=== PATIENT | male | born 1950 | race Caucasian/White ===

== ENCOUNTER 2016-08-17 12:44 | Emergency (ER) | payer MEDICAID ==
[2016-08-17 12:53] VITALS: BP 123/84
[2016-08-17] MEDS ORDERED: Thiamine 200 MG/2 ML MDV IM ONE ×2 (12:59→13:19)
[2016-08-17] MEDS ORDERED: Sodium Chloride 0.9% 10 ML Syringe FLUSH PRN (13:20)
--- NOTE | 2016-08-17 17:58 | CR ---
DATE OF SERVICE: 08/17/16 CLINICAL DATA: FALL SINUS SERIES The paranasal sinuses are clear. No air-fluid levels. The patient is edentulous. [id number] [facility]
--- NOTE | 2016-08-17 18:08 | CR ---
DATE OF SERVICE: 08/17/16 CLINICAL DATA: FALL PA AND LATERAL CHEST Comparison is made to a prior exam dated 02/24/16. The heart size is normal. The aorta is ectatic. The patient is status post median sternotomy. The lungs are mildly hyperexpanded. There is chronic blunting of both costophrenic angles consistent with small chronic pleural effusions or pleural scar. The lungs are otherwise clear. No other significant findings. [id number] [facility]
--- NOTE | 2016-08-18 00:42 | ER ---
The patient arrives by ambulance with chief complaint of fall. HISTORY OF PRESENT ILLNESS: The original call about this patient from the ambulance was that the patient was to arrive with CPR in progress. However, when patient arrived he was awake and alert and in no acute distress. Apparently, the patient had been drinking alcohol. He admits to 2 beers. He was outside of a bar when he missed a step on the curb and fell, face first. Ambulance was called. PAST MEDICAL HISTORY: Significant for coronary artery disease and a recent bypass surgery in March 2016. He also has a history of hypertension and mitral valvular heart disease. CURRENT MEDICATION: Includes aspirin 325 mg once a day, atorvastatin 40 mg one p.o. daily, lisinopril 2.5 mg p.o. daily, omeprazole 20 mg p.o. daily, Coreg 3.125 mg b.i.d. It is uncertain whether the patient is on Plavix or not. It is not on his medical list but he states that he does take Plavix 75 mg once a day. REVIEW OF SYSTEMS: CONSTITUTIONAL: The patient denies any fevers, weight loss, fatigue. No vision changes. He has problems with chronic nose bleeds and nasal congestion with postnasal drip. No sore throat. No ear pain. CARDIOVASCULAR: No chest pain or palpitations. RESPIRATORY: No coughing, wheezing, or shortness of breath. GI: No nausea, vomiting, diarrhea, constipation, heartburn, or rectal bleeding. : No dysuria. MUSCULOSKELETAL : The patient has no complaints of joint pain at this time. SKIN: The patient does have some road rash abrasions on his face and on his dorsum of his right #3 finger and knuckle. NEUROLOGICAL: He denies any focal weakness, headache, loss of consciousness, seizures. PSYCH: He has no complaints of depression or anxiety. PHYSICAL EXAMINATION: GENERAL: Reveals a well-developed, well-nourished, alert male. He is oriented x3. He is in no acute distress. He does have alcohol odor on board. HEENT: Eyes show EOMI, PERRLA, anicteric. ENT shows nose to be clear with no acute bleeding. Canals are normal bilaterally. Throat is clear. He is edentulous. NECK: Symmetrical. Nontender with full range of motion intact. Thyroid is not palpable. LYMPH: Exam shows no adenopathy present. LUNGS: Clear with cough. No wheezing. No accessary muscle use. No rhonchi or rales. HEART: Shows a regular rate and rhythm. No murmurs, rubs, or gallops. No S3, no S4. ABDOMEN: Soft, nontender. No mass. No organomegaly. CHEST: Shows no pectus. No tenderness of the ribs. BACK: Shows no CVA or cord tenderness. ORTHOPEDIC: Gait is normal. Digits and nails are normal. Joints show no inflammation or restricted motion. SKIN: As mentioned above shows mild road rash on his face, on his foot right upper cheek, and periorbital area. No actual lacerations. His third finger has a very small abrasion as well as in his knuckle. NEURO EXAM: Intact. Cranial nerves 2 through 12 are normal. PSYCH: Normal with good insight, good memory. Mood is appropriate. He is oriented x3. ASSESSMENT: Fall and acute alcohol intoxication, history of coronary artery disease, history of mitral valve disease, abrasions skin of the face and right #3 finger. PLAN: The patient will keep his wounds clean and dry. He will use antibacterial soap. I do not think he needs p.o. antibiotics at this time. I suggested that he refrain from drinking alcohol. He has no history of DTs. He is not interested in rehab at this time. He had a slight decrease in his magnesium level at 1.7. I suggested that he use over-the- counter Mag oxide 420 mg p.o. daily and that he follow up next week with his physicians. Chest x-ray and sinus films were negative for any fractures or acute changes. No air fluid levels in the sinuses. No pneumonias or effusions in his x-ray. Electrolytes were normal with the exception of his slightly decreased magnesium of 1.7. His alcohol level was 389. His urine was clear. His blood count was at his baseline with a normal white count 7.3, hemoglobin 13.4, MCV was 94, platelet count 200. ANDRES/MODL /[id number] MTDD
== END 2016-08-17 14:35 | disposition home or self-care (01) ==
LOC: LB.ED 12:44
DX: F10.929 Alcohol use, unspecified with intoxication, unspecified (principal); S00.81XA Abrasion of other part of head, initial encounter; S60.412A Abrasion of right middle finger, initial encounter; I25.810 Atherosclerosis of coronary artery bypass graft(s) without angina pectoris; I10 Essential (primary) hypertension; Z95.5 Presence of coronary angioplasty implant and graft; Z79.899 Other long term (current) drug therapy; Z79.02 Long term (current) use of antithrombotics/antiplatelets; W19.XXXA Unspecified fall, initial encounter
CPT/HCPCS: 36415; 70220; 71020; 80053; 80307; 81001; 83735; 84443; 84484; 85025; 93005; 96372; 99284; G0480; A0425; A0429

== ENCOUNTER 2017-02-07 15:23 | Observation (INO) | payer MEDICAID ==
--- NOTE | 2017-02-07 15:38 | EDM.PDOC ---
ED HPI GENERAL MEDICAL PROBLEM - General Chief Complaint: Respiratory Problem Stated Complaint: sob Time Seen by Provider: 02/07/17 15:38 Source of Information: Reports: Patient - History of Present Illness INITIAL COMMENTS - FREE TEXT/NARRATIVE: 66 yr male presents with shortness of breath, chest pain, hx of [place] about 1 yr ago, dizziness, and temperature. - Related Data Allergies Allergy/AdvReac Type Severity Reaction Status Date / Time No Known Allergies Allergy Verified 02/07/17 15:31 Home Meds: Home Meds Carvedilol [Coreg] 3.125 mg PO BIDMEALS 08/17/16 [History] Lisinopril [Prinivil] 2.5 mg PO DAILY 08/17/16 [History] Aspirin 325 mg PO QPM 02/07/17 [History] Past Medical History Musculoskeletal History: Reports: Back Pain, Chronic Neurological History: Reports: Head Trauma Social & Family History - Family History Family Medical History: Noncontributory - Tobacco Use Smoking Status *Q: Current Every Day Smoker Years of Tobacco use: 40 Packs/Tins Daily: 1 - Alcohol Use Days Per Week of Alcohol Use: 6 Number of Drinks Per Day: 1 Total Drinks Per Week: 6 - Recreational Drug Use Recreational Drug Use: No ED ROS GENERAL - Review of Systems Review Of Systems: See Below Constitutional: Reports: Fever, Chills Respiratory: Reports: Shortness of Breath, Cough, Sputum Cardiovascular: Reports: Chest Pain. Denies: Edema Neurological: Reports: Other (fell on Saturday about 4 days ago) ED EXAM, GENERAL - Physical Exam Exam: See Below Exam Limited By: No Limitations General Appearance: Alert, WD/WN, No Apparent Distress Nose: Normal Inspection Head: Normocephalic Neck: Normal Inspection, Supple, Non-Tender Respiratory/Chest: Rhonchi, Wheezing Cardiovascular: Normal Peripheral Pulses, Regular Rate, Rhythm, No Edema GI/Abdominal: Normal Bowel Sounds, Soft, Non-Tender Extremities: No Pedal Edema, Other (knee pain) Neurological: Alert, Oriented Skin Exam: Warm, Dry Course - Vital Signs Last Recorded V/S: Last Vital Signs Temp 97.7 F 02/07/17 15:30 Pulse 84 02/07/17 16:30 Resp 30 H 02/07/17 16:30 BP 119/87 02/07/17 16:30 Pulse Ox 95 02/07/17 16:30 - Orders/Labs/Meds Orders: Active Orders 24 hr Category Date Time Status Patient Status [ADT] Routine ADT 02/07/17 16:55 Ordered EKG Documentation Completion [RC] ASDIRECTED Care 02/07/17 15:41 Ordered RT Aerosol Therapy [RC] ASDIRECTED Care 02/07/17 16:59 Ordered Chest 2V [CR] Stat Exams 02/07/17 15:40 Ordered Albuterol/Ipratropium [DuoNeb 3.0-0.5 MG/3 ML] Med 02/07/17 17:00 Ordered 3 ml NEB Q6H Levofloxacin/Dextrose 5%-Water [Levaquin in D5W 750 MG/ Med 02/07/17 17:00 Ordered 150 ML] 750 mg Premix Bag 1 bag IV Q24H Pantoprazole [ProTONIX IV] Med 02/07/17 17:00 Ordered 40 mg IVPUSH Q12H Medication Orders Albuterol/Ipratropium (Duoneb 3.0-0.5 Mg/3 Ml) 3 ml NEB Q6H DALE Levofloxacin/Dextrose 750 mg/ (Premix) 150 mls @ 100 mls/hr IV Q24H DALE Pantoprazole Sodium (Protonix Iv) 40 mg IVPUSH Q12H DALE Labs: Laboratory Tests 02/07/17 02/07/17 Range/Units 15:39 15:45 WBC 5.8 D (4.0-11.0) K/uL RBC 4.08 L (4.50-6.50) M/uL Hgb 13.3 (13.0-18.0) g/dL Hct 37.9 L (40.0-54.0) % MCV 93 (76-96) fL MCH 32.6 H (27.0-32.0) pg MCHC 35.1 H (31.0-35.0) g/dL RDW 16.7 H (11.0-16.0) % Plt Count 108 L D (150-400) K/uL MPV 9.0 (6.0-10.0) fL Neut % (Auto) 60.1 (45.0-70.0) % Lymph % (Auto) 28.4 (20.0-40.0) % [place] % (Auto) 9.6 (3.0-10.0) % Eos % (Auto) 0.9 L (1.0-5.0) % Baso % (Auto) 1.0 H (0.0-0.5) % Neut # (Auto) 3.49 (2.00-7.50) K/uL Lymph # (Auto) 1.65 (1.50-4.00) K/uL [place] # (Auto) 0.56 (0.20-0.80) K/uL Eos # (Auto) 0.05 (0.04-0.40) K/uL Baso # (Auto) 0.06 (0.02-0.10) K/uL Sodium 141 (136-145) mmol/L Potassium 3.5 (3.5-5.1) mmol/L Chloride 99 (98-107) mmol/L Carbon Dioxide 24.0 (21.0-32.0) mmol/L Anion Gap 21.5 H (5.0-15.0) mmol/L BUN 11 D (8-26) mg/dL Creatinine 0.90 (0.70-1.30) mg/dL Est Cr Clr Drug Dosing 88.31 mL/min Estimated GFR (MDRD) > 60 (>60) MLS/MIN BUN/Creatinine Ratio 12.2 (6-25) Glucose 102 H (74-100) mg/dL Calcium 8.8 (8.5-10.1) mg/dL Total Bilirubin 1.4 H D (0.0-1.0) mg/dL AST 47 H (15-37) U/L ALT 29 (12-78) U/L Alkaline Phosphatase 67 (46-116) U/L Total Protein 6.7 (6.4-8.2) g/dL Albumin 3.8 (3.4-5.0) g/dL Globulin 2.9 (2.2-4.2) g/dL Albumin/Globulin Ratio 1.3 (0.8-2.0) Meds: Medications Generic Name Dose Route Start Last Admin Trade Name Freq PRN Reason Stop Dose Admin Albuterol/Ipratropium 3 ml 02/07/17 17:00 Duoneb 3.0-0.5 Mg/3 Ml NEB Q6H DALE Levofloxacin/Dextrose 750 mg/ 150 mls @ 100 mls/hr 02/07/17 17:00 Premix IV Q24H DALE Pantoprazole Sodium 40 mg 02/07/17 17:00 Protonix Iv IVPUSH Q12H DALE Discontinued Medications Generic Name Dose Route Start Last Admin Trade Name Bjorn PRN Reason Stop Dose Admin Albuterol/Ipratropium 3 ml 02/07/17 16:17 02/07/17 16:17 Duoneb 3.0-0.5 Mg/3 Ml NEB 02/07/17 16:18 3 ml ONETIME ONE Administration Departure - Departure Time of Disposition: 17:00 Disposition: Refer to Observation Condition: Good Clinical Impression: Upper respiratory infection, SOB (shortness of breath) - Discharge Information Referrals: PCP,None [Primary Care Provider] - Forms: ED Department Discharge - Problem List & Annotations (1) SOB (shortness of breath) SNOMED Code(s): 975289968 Code(s): R06.02 - SHORTNESS OF BREATH Status: Acute Priority: High Current Visit: Yes (2) Upper respiratory infection SNOMED Code(s): 78547137 Code(s): J06.9 - ACUTE UPPER RESPIRATORY INFECTION, UNSPECIFIED Status: Acute Current Visit: Yes - Problem List Review Problem List Initiated/Reviewed/Updated: Yes - My Orders Last 24 Hours: My Active Orders 02/07/17 15:40 Chest 2V [CR] Stat 02/07/17 15:41 EKG Documentation Completion [RC] ASDIRECTED 02/07/17 16:55 Patient Status [ADT] Routine 02/07/17 16:59 RT Aerosol Therapy [RC] ASDIRECTED 02/07/17 17:00 Albuterol/Ipratropium [DuoNeb 3.0-0.5 MG/3 ML] 3 ml NEB Q6H Levofloxacin/Dextrose 5%-Water [Levaquin in D5W 750 MG/150 ML] 750 mg Premix Bag 1 bag IV Q24H Pantoprazole [ProTONIX IV] 40 mg IVPUSH Q12H - Assessment/Plan Last 24 Hours: My Active Orders 02/07/17 15:40 Chest 2V [CR] Stat 02/07/17 15:41 EKG Documentation Completion [RC] ASDIRECTED 02/07/17 16:55 Patient Status [ADT] Routine 02/07/17 16:59 RT Aerosol Therapy [RC] ASDIRECTED 02/07/17 17:00 Albuterol/Ipratropium [DuoNeb 3.0-0.5 MG/3 ML] 3 ml NEB Q6H Levofloxacin/Dextrose 5%-Water [Levaquin in D5W 750 MG/150 ML] 750 mg Premix Bag 1 bag IV Q24H Pantoprazole [ProTONIX IV] 40 mg IVPUSH Q12H Plan: Upper respiratory infection: Levaquin 750 mg IV q 24 hr Duoneb q 6 hr dale. Upper GI distress: IV protonix q 12 hr dale.
[2017-02-07] MEDS ORDERED: Albuterol/Ipratropium 3.0-0.5 MG/3 ML Neb Soln NEB ONE (16:17)
[2017-02-07] MEDS: Albuterol/Ipratropium 3.0-0.5 MG/3 ML Neb Soln NEB SCH (17:00)
[2017-02-07] MEDS ORDERED: Levofloxacin/Dextrose 5%-Water 750 MG in Premix Bag 1 BAG IV SCH (17:00)
[2017-02-07] MEDS ORDERED: Sodium Chloride 0.9% 1,000 ML IV SCH (17:15)
[2017-02-07] MEDS: Pantoprazole 40 MG Vial IVPUSH SCH (17:30)
[2017-02-07] MEDS ORDERED: Ondansetron 4 MG/2 ML SDV ONE (18:23)
[2017-02-07] MEDS ORDERED: Promethazine 25 MG in Sodium Chloride 0.9% 50 ML IV PRN (18:36)
[2017-02-07] MEDS: Promethazine 25 MG/ML SDV ONE (18:45)
[2017-02-07] MEDS ORDERED: LORazepam 1 MG Tab PO PRN (18:52)
[2017-02-07] MEDS ORDERED: LORazepam 1 MG Tab PO ONE (18:54)
[2017-02-08] MEDS: Promethazine 25 MG/ML SDV ONE (00:04)
[2017-02-08] MEDS: Albuterol/Ipratropium 3.0-0.5 MG/3 ML Neb Soln NEB SCH ×5 (00:15→22:42)
[2017-02-08] MEDS: Pantoprazole 40 MG Vial IVPUSH SCH ×2 (05:27→17:15)
[2017-02-08] MEDS: Nicotine 21 MG/24 Hr Patch TRDERM SCH ×2 (05:46→11:36)
--- NOTE | 2017-02-08 09:50 | CR ---
DATE OF SERVICE: 02/07/17 CLINICAL DATA: short of breath PA AND LATERAL CHEST: Comparison is made to a prior exam dated 08/17/2016. The patient is status post median sternotomy. The heart size is normal. The aorta is calcified and ectatic. The lungs are mildly hyperexpanded. There is a rounded nodular density overlying the right lower lung consistent with nipple shadow. The lungs are otherwise clear. No pneumothorax. No pleural effusions. No areas of consolidation. No other significant findings. IMPRESSION: No evidence of acute intrathoracic disease. [id number] [facility]
--- NOTE | 2017-02-08 18:05 | PN ---
DATE OF VISIT: SUBJECTIVE: This is a 66-year-old male who was admitted yesterday late afternoon for observation, for weakness with shortness of breath, some concern about possible pneumonia. The patient has continued to be weak. His shortness of breath seems to be getting better. He is getting a little stronger today. OBJECTIVE: VITAL SIGNS: Vital signs have been good. Blood pressure this morning is 139/93, pulse 75, he is afebrile. LAB WORK: Reveals a WBC today of 3.9; hemoglobin is currently 11.7, it was 13.3 yesterday; platelets are now at 72,000, they were 108,000 yesterday. H. pylori and rapid flu were done today, which were negative. The patient has been afebrile. ASSESSMENT AND PLAN: Nursing staff states that he has been up to go to the bathroom, but this is about as much energy as he has. He has been eating and drinking okay. When I saw the patient this morning, he states he was not feeling very good, mainly tired. He has been having some nausea and vomiting problems yesterday and during the night, this seems to have gotten better today. I feel the patient needs to remain on observation overnight and be re- evaluated tomorrow. If he is not able to be discharged tomorrow, he would need to be transferred to acute care status. CRS/MODL /[id number]
--- NOTE | 2017-02-09 10:10 | PCM.DCSUM1 ---
Discharge Summary - Hospital Course Free Text/Narrative:: Pt is a 66 year old male admitted with weakness and mild URI symptoms. His initial workup was normal.He was admitted for IV hydration and also empirically was covered with levaquin for pneumonia. His chest Xray was normal and his Levaquin was discontinued. His initial CBC and CMP were normal. On Day 1, Pt's vitals were stable and his CBC and BMP were normal. His weakness and tired feeling was better.Pt's IV fluids were discontinued and monitored. He has been feeding well. No complaints. On Day 2 , pt has been having mild productive cough. Afebrile. No shortness of breath or wheezing. HE claims he feels better.Clinical exam is normal. I have reassured patient that he had Viral URI with bronchitis. Plan on discharge today. I have advised him to use robutussin DM for cough. Steam inhalations 2-3 times daily. rest and hydration. Followup with his PCP next saturday or saturday. Brief History: Admitted with weakness and chestpain. Kindly see H&P for details. - Discharge Data Discharge Date: 02/09/17 Discharge Disposition: Home, Self-Care 01 Condition: Good - Discharge Diagnosis/Problem(s) (1) Viral bronchitis SNOMED Code(s): 97667590 ICD Code: J20.8 - ACUTE BRONCHITIS DUE TO OTHER SPECIFIED ORGANISMS Status : Acute Current Visit: Yes (2) Upper respiratory infection SNOMED Code(s): 23487978 ICD Code: J06.9 - ACUTE UPPER RESPIRATORY INFECTION, UNSPECIFIED Status: Acute Current Visit: Yes - Patient Instructions Diet: Regular Diet as Tolerated Fluid Restriction: 1500 mL Activity: As Tolerated Driving: May Drive Today Showering/Bathing: May Shower Other/Special Instructions: Plan on discharge today. I have advised him to use robutussin DM for cough. Steam inhalations 2-3 times daily. rest and hydration. Followup with his PCP next saturday or saturday. - Discharge Plan Home Medications: Home Meds Carvedilol [Coreg] 3.125 mg PO BIDMEALS 08/17/16 [History] Lisinopril [Prinivil] 2.5 mg PO DAILY 08/17/16 [History] Aspirin 325 mg PO QPM 02/07/17 [History] Forms: ED Department Discharge Referrals: PCP,None [Primary Care Provider] - - Discharge Summary/Plan Comment DC Time >30 min.: Yes - General Info Date of Service: 02/09/17 Functional Status: Reports: Tolerating Diet, Ambulating, Urinating, Incentive Spirometry - Review of Systems General: Denies: Fever, Weakness, Fatigue HEENT: Denies: Headaches, Sinus Congestion, Sore Throat Pulmonary: Reports: Cough. Denies: Shortness of Breath, Pleuritic Chest Pain, Sputum Cardiovascular: Denies: Chest Pain, Lightheadedness Gastrointestinal: Denies: Abdominal Pain, Diarrhea, Nausea, Vomiting Genitourinary: Denies: Dysuria, Frequency Musculoskeletal: Denies: Joint Pain, Joint Swelling Skin: Denies: Cyanosis, Jaundice, Pruritis, Rash Neurological: Denies: Confusion, Dizziness, Seizure, Syncope Psychiatric: Denies: Confusion, Depression - Patient Data Vitals - Most Recent: Last Vital Signs Temp 98.4 F 02/08/17 20:00 Pulse 92 02/08/17 20:00 Resp 20 02/08/17 20:00 BP 127/75 02/08/17 20:00 Pulse Ox 100 02/08/17 20:00 Weight - Most Recent: 78.018 kg I&O - Last 24 hours: Intake & Output 02/08/17 02/09/17 02/09/17 22:59 06:59 14:59 Intake Total 750 Balance 750 PATRICK Results - Last 24 hrs: Microbiology 02/08/17 Unknown MRSA Surveillance Culture - Final Nares, Unspecified NO MRSA ISOLATED 02/08/17 Unknown Helicobacter pylori Antigen - Final Stool / Feces NEGATIVE H. PYLORI AG 02/08/17 10:35 Influenza Type A Antigen Screen - Final Nasal, Unspecified NEGATIVE INFLUENZA A VIRUS AG Influenza Type B Antigen Screen - Final NEGATIVE INFLUENZA B VIRUS AG Med Orders - Current: Current Medications Albuterol/Ipratropium (Duoneb 3.0-0.5 Mg/3 Ml) 3 ml NEB Q6H MINDY Last Admin: 02/08/17 22:42 Dose: 3 ml Sodium Chloride (Normal Saline) 1,000 mls @ 50 mls/hr IV ASDIRECTED MINDY Last Admin: 02/07/17 17:43 Dose: 50 mls/hr Promethazine HCl 25 mg/ Sodium (Chloride) 51 mls @ 200 mls/hr IV Q6H PRN PRN Reason: Nausea/Vomiting Lorazepam (Ativan) 0 mg PO Q8H PRN; Protocol PRN Reason: Withdrawal Symptoms Last Admin: 02/07/17 18:55 Dose: 1 mg Nicotine (Habitrol) 21 mg TRDERM DAILY [facility] Last Admin: 02/08/17 11:36 Dose: Not Given Pantoprazole Sodium (Protonix Iv) 40 mg IVPUSH Q12H [facility] Last Admin: 02/08/17 17:15 Dose: 40 mg Discontinued Medications Albuterol/Ipratropium (Duoneb 3.0-0.5 Mg/3 Ml) 3 ml NEB ONETIME ONE Stop: 02/07/17 16:18 Last Admin: 02/07/17 16:17 Dose: 3 ml Levofloxacin/Dextrose 750 mg/ (Premix) 150 mls @ 100 mls/hr IV Q24H [facility] Last Admin: 02/07/17 17:40 Dose: 50 mls/hr Lorazepam (Ativan) 1 mg PO ONETIME ONE Stop: 02/07/17 18:55 Last Admin: 02/08/17 00:05 Dose: Not Given Ondansetron HCl (Zofran) Confirm Administered Dose 4 mg .ROUTE .STK-MED ONE Stop: 02/07/17 18:24 Last Admin: 02/07/17 18:30 Dose: Not Given Promethazine HCl (Phenergan) Confirm Administered Dose 25 mg .ROUTE .STK-MED ONE Stop: 02/07/17 18:39 Last Admin: 02/08/17 00:04 Dose: Not Given - Exam General: Reports: Alert, Oriented HEENT: Reports: Pupils Equal, Pupils Reactive, EOMI, Mucous Membr. Moist/[place] Neck: Reports: Supple Lungs: Reports: Clear to Auscultation, Normal Respiratory Effort Cardiovascular: Reports: Regular Rate, Regular Rhythm GI/Abdominal Exam: Normal Bowel Sounds, Soft, Non-Tender, No Organomegaly, No Distention, No Abnormal Bruit, No Mass, Pelvis Stable Extremities: Normal Inspection, Normal Range of Motion, Non-Tender, No Pedal Edema, Normal Capillary Refill Skin: Reports: Warm, Dry, Intact Neurological: Reports: No New Focal Deficit *Q Meaningful Use (DIS) - VTE *Q VTE Criteria *Q: - Stroke *Q Stroke Criteria *Q: - AMI *Q AMI Criteria *Q:
[2017-02-09 11:17] VITALS: BP 155/84
== END 2017-02-09 11:40 | disposition home or self-care (01) ==
LOC: LB.ED 15:23 → LB.MS 16:55
PROVIDERS: ADMIT Nurse Practitioner Family; ATTEND Nurse Practitioner Family
DX: J20.8 Acute bronchitis due to other specified organisms (principal); J06.9 Acute upper respiratory infection, unspecified; F17.200 Nicotine dependence, unspecified, uncomplicated; I25.2 Old myocardial infarction; Z79.899 Other long term (current) drug therapy
CPT/HCPCS: 36415; 71020; 80048; 80053; 84484; 85025; 87338; 87804; 93005; 96374; 96375; 96376; 99285; A0425; A0429; A9270; C9113; G0378; J1956; J2550; J7040; J7620

== ENCOUNTER 2017-06-06 07:55 | Emergency (ER) | payer MEDICAID ==
[2017-06-06] MEDS: Sodium Chloride 0.9% 500 ML IV ONE (08:30)
[2017-06-06] MEDS: Albuterol/Ipratropium 3.0-0.5 MG/3 ML Neb Soln NEB ONE (08:35)
[2017-06-06] MEDS: Albuterol/Ipratropium 3.0-0.5 MG/3 ML Neb Soln ONE (08:47)
[2017-06-06 08:56] VITALS: BP 96/63
--- NOTE | 2017-06-06 10:06 | ER ---
DATE OF SERVICE: 06/06/2017 HISTORY OF PRESENT ILLNESS: A 66-year-old male who comes in by ambulance with complaints of shortness of breath. He tells me he cannot get a good breath and he feels like he may . The patient states this has been ongoing for a while. He is very vague with details. The patient denies running a fever. He has not had any falls or injuries. PAST MEDICAL HISTORY: Includes coronary artery disease, CHF, shortness of breath, weakness, alcohol abuse. CURRENT MEDICATIONS: Lisinopril 2.5 mg a day, Coreg 3.125 mg b.i.d., a daily aspirin 325 mg. The patient also takes a PPI on a p.r.n. basis. OBJECTIVE: GENERAL APPEARANCE: The patient is awake and alert. He is somewhat slow to answer questions and is vague with details. VITAL SIGNS: Reviewed. Blood pressure 116/71. He is afebrile, pulse is 71, O2 sats are 97% on room air. HEENT: Ears, TMs are dull. Nares are patent. Oral mucous membranes are dry. Tonsils, not enlarged or injected. Pharynx not inflamed. NECK: Supple. LUNGS: Reveals rhonchi and rales scattered throughout the lung humphrey. CARDIAC: Heart sounds distinct without murmurs. ABDOMEN: Soft, nontender. Bowel sounds are present. SKIN: Warm and dry. LAB AND X-RAY: An EKG shows normal sinus rhythm. Chest x-ray shows some mild pulmonary congestion. There is no sign of effusion or pneumonia. Labs done today include a CBC which is normal. CMP shows a normal potassium level. Kidney function is normal. BNP is elevated at 1105. Troponin is normal. DIAGNOSIS: Congestive heart failure. TREATMENT PLAN: A DuoNeb was given to the patient. This significantly helped with the patient's wheezing and he felt better after the breathing treatment. He still has scattered rales, but the wheezes cleared up. At this point, the patient will be discharged home. I will start him on Lasix 20 mg b.i.d. for 3 days and then 20 mg q.a.m. for 4 days. I will give him a nebulizer machine at home with DuoNeb treatments every 6 hours while awake. The patient is to go home and rest for the next couple of days and then increase activity as tolerated. I do want the patient to follow up with his primary care provider whom he tells me is Dr. Jacinto early next week in the clinic. Follow up sooner of course steven OLEARY/LISANDRO /[id number] MTDD
--- NOTE | 2017-06-06 11:51 | CR ---
DATE OF SERVICE: 06/06/2017 CLINICAL DATA: SOB. PORTABLE CHEST: Comparison is made to a prior exam dated 02/07/2017. The patient is status post median sternotomy. The heart size is within normal limits. The aorta is ectatic. The pulmonary vasculature does appears slightly more prominent than on the prior exam suggesting the possibility of fluid overload or mild pulmonary venous congestion. The lungs are clear. No pneumothorax. No pleural effusions. No areas of consolidation. [id number] [facility]
== END 2017-06-06 09:57 | disposition home or self-care (01) ==
LOC: LB.ED 07:55
DX: I50.9 Heart failure, unspecified (principal)
CPT/HCPCS: 36415; 71045; 80053; 83880; 84484; 85025; 93005; 94640; 96360; 99285-25; A0425; A0429; G0480; J7040; J7620

== ENCOUNTER 2018-03-18 10:01 | Emergency (ER) | payer MEDICARE, MEDICAID ==
--- NOTE | 2018-03-18 11:01 | EDM.PDOC ---
ED HPI GENERAL MEDICAL PROBLEM - General Chief Complaint: Respiratory Problem Stated Complaint: CHEST PAIN Time Seen by Provider: 03/18/18 10:35 Source of Information: Reports: Patient, Family, RN History Limitations: Reports: No Limitations - History of Present Illness INITIAL COMMENTS - FREE TEXT/NARRATIVE: 67 yr male presents with cough and left sided pointed, chest pain, worse with deep breathing. States he has had these symptoms on/off for about 3 years and was treated on/off with antibiotic. States no pain while sitting, but pain increases with cough and deep breathing. Pt states he did eat last night, but hasn't had anything today. He did have some coffee and water. He was feeling better this week after being on antibiotic and watched football and then in the middle of the night, started with this cough again. States he has been using the nebulizer and noted improvement. States symptoms started a couple nights ago and noted some pain to the lower abdomen and then to back. He does have a cardiac history and did have a bypass a couple years ago. He does take ASA daily and did have his medication today. - Related Data Allergies Allergy/AdvReac Type Severity Reaction Status Date / Time No Known Allergies Allergy Verified 06/06/17 11:50 Home Meds: Home Meds Carvedilol [Coreg] 3.125 mg PO BIDMEALS 08/17/16 [History] Lisinopril [Prinivil] 5 mg PO DAILY 08/17/16 [History] Aspirin 325 mg PO QPM 02/07/17 [History] Omeprazole 20 mg PO DAILY 06/06/17 [History] Levofloxacin 750 mg PO DAILY #7 tablet 03/18/18 [Rx] predniSONE [Prednisone] 10 mg PO DAILY #40 tablet 03/18/18 [Rx] traMADol [Ultram] 50 mg PO Q6H PRN #28 tab 03/18/18 [Rx] Past Medical History HEENT History: Reports: Other (See Below) Other HEENT History: use to have dentures Cardiovascular History: Reports: CAD, Heart Failure, High Cholesterol, Hypertension, Other (See Below) Other Cardiovascular History: mitral valve disease Respiratory History: Reports: COPD Gastrointestinal History: Reports: GERD Musculoskeletal History: Reports: Back Pain, Chronic Neurological History: Reports: Head Trauma - Infectious Disease History Infectious Disease History: Reports: Chicken Pox, Measles, Mumps - Past Surgical History Cardiovascular Surgical History: Reports: Coronary Artery Bypass Respiratory Surgical History: Reports: None Social & Family History - Family History Family Medical History: Noncontributory - Caffeine Use Caffeine Use: Reports: Other Other Caffeine Use: Chocolate, occasional coffee ED ROS GENERAL - Review of Systems Review Of Systems: See Below Constitutional: Reports: No Symptoms. Denies: Fever, Chills Respiratory: Reports: Shortness of Breath, Cough, Sputum. Denies: Wheezing Cardiovascular: Reports: Chest Pain, Dyspnea on Exertion Neurological: Reports: No Symptoms Psychiatric: Reports: No Symptoms ED EXAM, GENERAL - Physical Exam Exam: See Below Exam Limited By: No Limitations General Appearance: Alert, No Apparent Distress Ears: Normal External Exam, Normal Canal, Hearing Grossly Normal Nose: Normal Inspection, Normal Mucosa Throat/Mouth: Normal Oropharynx, Normal Voice, No Airway Compromise Head: Atraumatic, Normocephalic Neck: Supple, Non-Tender Respiratory/Chest: No Respiratory Distress, Normal Breath Sounds, Decreased Breath Sounds (left lower lobe, wheezing to right lower lobe) Cardiovascular: Regular Rate, Rhythm, No Edema GI/Abdominal: Soft, Non-Tender, No Distention Extremities: Normal Inspection, Normal Range of Motion, Non-Tender, No Pedal Edema Neurological: Alert, Oriented, Normal Cognition Psychiatric: Normal Affect, Normal Mood Skin Exam: Warm, Dry, Normal Color Lymphatic: No Adenopathy EKG INTERPRETATION EKG Date: 03/18/18 Rhythm: NSR Comparison: No Change Course - Vital Signs Last Recorded V/S: Last Vital Signs Temp 97.3 F 03/18/18 12:53 Pulse 75 03/18/18 12:53 Resp 18 03/18/18 12:53 BP 100/73 03/18/18 12:53 Pulse Ox 97 03/18/18 12:53 - Orders/Labs/Meds Orders: Active Orders 24 hr Category Date Time Status EKG Documentation Completion [RC] ASDIRECTED Care 03/18/18 11:52 Active Chest wo Cont [CT] Stat Exams 03/18/18 10:51 Taken Labs: Laboratory Tests 03/18/18 03/18/18 03/18/18 Range/Units 10:49 10:49 10:50 WBC 10.4 D (4.0-11.0) K/uL RBC 4.48 L (4.50-6.50) M/uL Hgb 14.4 (13.0-18.0) g/dL Hct 43.4 (40.0-54.0) % MCV 97 H (76-96) fL MCH 32.1 H (27.0-32.0) pg MCHC 33.2 (31.0-35.0) g/dL RDW 16.8 H (11.0-16.0) % Plt Count 147 L D (150-400) K/uL MPV 9.9 (6.0-10.0) fL Neut % (Auto) 71.2 H (45.0-70.0) % Lymph % (Auto) 11.3 L (20.0-40.0) % [place] % (Auto) 12.7 H (3.0-10.0) % Eos % (Auto) 4.6 (1.0-5.0) % Baso % (Auto) 0.2 (0.0-0.5) % Neut # (Auto) 7.41 (2.00-7.50) K/uL Lymph # (Auto) 1.17 L (1.50-4.00) K/uL [place] # (Auto) 1.32 H (0.20-0.80) K/uL Eos # (Auto) 0.48 H (0.04-0.40) K/uL Baso # (Auto) 0.02 (0.02-0.10) K/uL Sodium 140 (136-145) mmol/L Potassium 4.1 (3.5-5.1) mmol/L Chloride 103 (98-107) mmol/L Carbon Dioxide 23.0 (21.0-32.0) mmol/L Anion Gap 18.1 H (5.0-15.0) mmol/L BUN 10 (8-26) mg/dL Creatinine 0.87 (0.70-1.30) mg/dL Est Cr Clr Drug Dosing TNP Estimated GFR (MDRD) > 60 (>60) MLS/MIN BUN/Creatinine Ratio 11.5 (6-25) Glucose 100 (74-100) mg/dL Calcium 8.7 (8.5-10.1) mg/dL Total Bilirubin 0.8 D (0.0-1.0) mg/dL AST 15 (15-37) U/L ALT 15 (12-78) U/L Alkaline Phosphatase 54 (46-116) U/L Troponin I < 0.017 (0.000-0.060) ng/mL C-Reactive Protein 24.8 H (0.0-3.0) mg/L Total Protein 6.4 (6.4-8.2) g/dL Albumin 3.3 L (3.4-5.0) g/dL Globulin 3.1 (2.2-4.2) g/dL Albumin/Globulin Ratio 1.1 (0.8-2.0) Meds: Medications Discontinued Medications Generic Name Dose Route Start Last Admin Trade Name Freq PRN Reason Stop Dose Admin Hydromorphone HCl Confirm 03/18/18 11:49 03/18/18 11:48 Dilaudid Administered 03/18/18 11:50 Not Given Dose 2 mg .ROUTE .STK-MED ONE Hydromorphone HCl 0.5 mg 03/18/18 11:46 03/18/18 11:47 Dilaudid IVPUSH 03/18/18 11:47 0.5 mg ONETIME ONE Administration - Re-Assessments/Exams Free Text/Narrative Re-Assessment/Exam: 03/18/18 17:32 LE Pt has had symptoms reportedly for 3 years and various rounds of antibiotic. 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 He just finished Azithromycin and Prednisone pack on Saturday and his symptoms returned. Will get Ct of chest today. CT results of left pleural effusion. This may be pneumonia in nature or malignancy. Will treat for pneumonia with Levofloxacin and Prednisone taper for COPD exacerbation. Counseled on black box warning of the antibiotic and pt would like to proceed with the antibiotic. Reviewed lab results and CT report with pt and daughter. Will refer pt to pulmonology from the clinic. RTC for follow-up and referral. Departure - Departure Time of Disposition: 13:00 Disposition: Home, Self-Care 01 Condition: Good Clinical Impression: Pleural effusion, Pleurisy - Discharge Information *PRESCRIPTION DRUG MONITORING PROGRAM REVIEWED*: Not Applicable *COPY OF PRESCRIPTION DRUG MONITORING REPORT IN PATIENT SUNNI: Not Applicable Prescriptions: Levofloxacin 750 mg PO DAILY #7 tablet predniSONE [Prednisone] 10 mg PO DAILY #40 tablet traMADol [Ultram] 50 mg PO Q6H PRN #28 tab PRN Reason: Pain Instructions: Pleural Effusion Referrals: PCP,None [Primary Care Provider] - Forms: ED Department Discharge Additional Instructions: Take Levofloxin 750mg daily until gone. Take Prednisone 40mg today then taper to 30mg then 20mg then 10mg until gone. Take Ultram 50mg every 6 hours as needed forpain - My Orders Last 24 Hours: My Active Orders 03/18/18 10:51 Chest wo Cont [CT] Stat 03/18/18 11:52 EKG Documentation Completion [RC] ASDIRECTED - Assessment/Plan Last 24 Hours: My Active Orders 03/18/18 10:51 Chest wo Cont [CT] Stat 03/18/18 11:52 EKG Documentation Completion [RC] ASDIRECTED Plan: Will get Ct of chest today. CT results of left pleural effusion. This may be pneumonia in nature or malignancy. Will treat for pneumonia with Levofloxacin and Prednisone taper for COPD exacerbation. Counseled on black box warning of the antibiotic and pt would like to proceed with the antibiotic. Will treat the pain with Tramadol prn. Reviewed lab results and CT report with pt and daughter. Will refer pt to pulmonology from the clinic. RTC for follow-up and referral.
[2018-03-18] MEDS ORDERED: HYDROmorphone 2 MG/ML Syringe IVPUSH ONE (11:46)
[2018-03-18] MEDS ORDERED: HYDROmorphone 2 MG/ML Syringe ONE (11:49)
[2018-03-18 12:44] VITALS: BP 100/73
--- NOTE | 2018-03-19 12:31 | CT ---
DATE OF SERVICE: 03/18/18 CLINICAL DATA: Cough UNENHANCED CHEST CT: Multislice acquisition through the chest without IV contrast was performed. Comparison is made to a prior chest x-ray dated 02/11/18. There is a large left pleural effusion that appears to be partially loculated. There is atelectasis with consolidation involving the lingular segment of the left upper lobe and left lower lobe. Pneumonia should be considered. I cannot exclude a mass. There is a 3 mm subpleural nodule in the right upper lobe which appears to be partially calcified consistent with prior granulomatous disease. The right lung is otherwise clear. No pleural effusion on the right. The heart size is within normal limits. There are coronary artery calcifications. No pericardial effusion. No hilar or mediastinal adenopathy. No aortic aneurysm. The patient is status post median sternotomy. No other significant findings. IMPRESSION: 1. Large left pleural effusion that appears to be partially loculated. There is atelectasis with consolidation in the lingular segment of the left upper lobe and left lower lobe. Pneumonia should be considered. I cannot exclude a mass. Followup imaging is recommended to evaluate for improvement or persistence. 2. Other findings as discussed above. [id number] [facility]
== END 2018-03-18 13:01 | disposition home or self-care (01) ==
LOC: LB.ED 10:01
DX: J90 Pleural effusion, not elsewhere classified (principal); R09.1 Pleurisy; I11.0 Hypertensive heart disease with heart failure; I50.9 Heart failure, unspecified; I25.10 Atherosclerotic heart disease of native coronary artery without angina pectoris; K21.9 Gastro-esophageal reflux disease without esophagitis; Z79.899 Other long term (current) drug therapy; Z95.1 Presence of aortocoronary bypass graft; Z79.82 Long term (current) use of aspirin
CPT/HCPCS: 36415; 71250; 80053; 84484; 85025; 86140; 93005; 96374; 99285-25; J1170

== ENCOUNTER 2018-07-09 19:20 | Emergency (ER) | payer MEDICARE, MEDICAID ==
[2018-07-09] MEDS ORDERED: Lidocaine 1% 10 ML MDV ONE (20:30)
[2018-07-09 21:58] VITALS: BP 120/82
--- NOTE | 2018-07-10 08:08 | EDM.PDOC ---
ED HPI GENERAL MEDICAL PROBLEM - General Chief Complaint: General Stated Complaint: LACERATION Time Seen by Provider: 07/09/18 19:47 Source of Information: Reports: Patient, Family, RN History Limitations: Reports: No Limitations - History of Present Illness INITIAL COMMENTS - FREE TEXT/NARRATIVE: 68 yr old male presents with laceration to 3rd digit of left hand to the proximal phalanx. States he was cutting some lunch meat and cut his finger about 3:30 today. His daughter brought him in. Pt is moving the fingers well and bleeding is minimal. Pt is alert, hard of hearing but talkative and cooperative. States he didn't want to come in, but his daughter talked him into it. He reports living at the [facility]. - Related Data Allergies Allergy/AdvReac Type Severity Reaction Status Date / Time No Known Allergies Allergy Verified 07/09/18 19:22 Home Meds: Home Meds Carvedilol [Coreg] 3.125 mg PO BIDMEALS 08/17/16 [History] Lisinopril [Prinivil] 5 mg PO DAILY 08/17/16 [History] Aspirin 325 mg PO QPM 02/07/17 [History] Omeprazole 20 mg PO DAILY 06/06/17 [History] Levofloxacin 750 mg PO DAILY #7 tablet 03/18/18 [Rx] predniSONE [Prednisone] 10 mg PO DAILY #40 tablet 03/18/18 [Rx] traMADol [Ultram] 50 mg PO Q6H PRN #28 tab 03/18/18 [Rx] Past Medical History HEENT History: Reports: Hard of Hearing, Impaired Vision, Other (See Below) Other HEENT History: use to have dentures Cardiovascular History: Reports: CAD, Heart Failure, High Cholesterol, Hypertension, Other (See Below) Other Cardiovascular History: mitral valve disease Respiratory History: Reports: COPD Gastrointestinal History: Reports: GERD Musculoskeletal History: Reports: Back Pain, Chronic Neurological History: Reports: Head Trauma Psychiatric History: Reports: Anxiety - Infectious Disease History Infectious Disease History: Reports: Chicken Pox - Past Surgical History Cardiovascular Surgical History: Reports: Coronary Artery Bypass Respiratory Surgical History: Reports: None Social & Family History - Family History Family Medical History: Noncontributory - Tobacco Use Smoking Status *Q: Current Every Day Smoker Years of Tobacco use: 50 Packs/Tins Daily: 1 Used Tobacco, but Quit: No - Caffeine Use Caffeine Use: Reports: Coffee Other Caffeine Use: Chocolate, occasional coffee - Recreational Drug Use Recreational Drug Use: No ED ROS GENERAL - Review of Systems Review Of Systems: See Below Constitutional: Reports: No Symptoms Respiratory: Denies: Shortness of Breath Cardiovascular: Denies: Chest Pain, Lightheadedness GI/Abdominal: Denies: Abdominal Pain, Decreased Appetite Musculoskeletal: Reports: Other (pain to finger with laceration) Skin: Reports: Other (laceration to finger) Neurological: Denies: Confusion, Dizziness, Headache Psychiatric: Reports: No Symptoms ED EXAM, GENERAL - Physical Exam Exam: See Below Exam Limited By: No Limitations General Appearance: Alert, No Apparent Distress Ears: Normal External Exam, Hearing Loss Throat/Mouth: Normal Voice, No Airway Compromise Head: Atraumatic, Normocephalic Respiratory/Chest: No Respiratory Distress Cardiovascular: Normal Peripheral Pulses Peripheral Pulses: 2+: Radial (L), Radial (R) Extremities: Other (Moving hand and fingers without difficulty) Neurological: Alert, Oriented, Normal Cognition Psychiatric: Normal Affect, Normal Mood Skin Exam: Warm, Dry, Wound/Incision (left middle (third finger) to proximal phalanx) Lymphatic: No Adenopathy ED GENERAL MEDICAL PROCEDURES - Laceration/Wound Repair Left Proximal Digit - 3rd (Middle) Lac/wound length in cm: 3 (about 3 cm) Appearance: Subcutaneous, Clean Distal NVT: Neuro & Vascular Intact, No Tendon Injury Anesthetic Type: Local Local Anesthesia - Lidocaine (Xylocaine): 1% Plain Local Anesthetic Volume: 5cc Skin Prep: Providone-Iodine (Betadine), Saline, Sterile Drape Exploration/Debridement/Repair: Wound Explored, No Foreign Material Found Closed with: Sutures Suture Size: 4-0 # of Sutures: 7 Suture Type: Nylon Course - Vital Signs Last Recorded V/S: Last Vital Signs Temp 97.6 F 07/09/18 19:43 Pulse 82 07/09/18 19:43 Resp 16 07/09/18 19:43 BP 120/82 07/09/18 19:43 Pulse Ox 98 07/09/18 19:43 Departure - Departure Time of Disposition: 20:38 Disposition: Home, Self-Care 01 Condition: Good Clinical Impression: Laceration - Discharge Information *PRESCRIPTION DRUG MONITORING PROGRAM REVIEWED*: Not Applicable *COPY OF PRESCRIPTION DRUG MONITORING REPORT IN PATIENT SUNNI: Not Applicable Instructions: Wound Infection, [id number], Stitches, [place], or Adhesive Wound Closure, [id number] Forms: ED Department Discharge Additional Instructions: Keep applied dressing in place for next 24 hours. Then may remove and wash area with warm soapy water and dab dry. Keep area clean and dry, out of water for next 3-4 days. Apply thin strip of antibiotic ointment daily. Be sure to watch for signs and symptoms of infection present, including increased redness, increased swelling, increased pain or tenderness to touch, foul drainage and/or fever present. Should any of these symptoms occur, return to be seen for further treatment. Follow up in clinic in 14 days for suture removal. Call with any questions. - Assessment/Plan Plan: Wound cleansed with Nacl and povidyne to surrounding skin. 1% lidoncaine used for anesthetic to area. Pt tolerated well. Laceration repaired using aseptic technique. 7 sutures applied. Pt moves fingers well and good finger to thumb movement noted. Minimal serosanguinuos drainage from site during repair. Area cleansed post suture per RN and dry sterile dressing applied. Recommend pt to return to clinic in 10-14 days for suture removal Tetanus vaccine is up to date. Recommend to keep area clean and dry. RTC sooner if any signs of infection.
== END 2018-07-09 20:38 | disposition home or self-care (01) ==
LOC: LB.ED 19:20
DX: S61.213A Laceration without foreign body of left middle finger without damage to nail, initial encounter (principal); F17.210 Nicotine dependence, cigarettes, uncomplicated; I11.0 Hypertensive heart disease with heart failure; I50.9 Heart failure, unspecified; K21.9 Gastro-esophageal reflux disease without esophagitis; J44.9 Chronic obstructive pulmonary disease, unspecified; Z79.82 Long term (current) use of aspirin; Z79.899 Other long term (current) drug therapy; W26.9XXA Contact with unspecified sharp object(s), initial encounter
CPT/HCPCS: 12002; 99282; J2001

== ENCOUNTER → 2019-01-22 | Outpatient (CLI) | payer MEDICARE, MEDICAID ==
--- NOTE | 2019-01-22 17:31 | CR ---
CLINICAL DATA: Atherosclerotic heart disease of [place] coronary artery without angina pect. PA AND LATERAL CHEST, 22 JANUARY 2019: Comparison is made to a prior exam dated February 11, 2018. The heart size is normal. The patient is status post median sternotomy. The aorta is calcified and ectatic. The lungs are hyperexpanded. There is pleural thickening in the left hemithorax and left costophrenic angle. There are linear densities in the left mid and lower lung, consistent with linear atelectasis or fibrosis. The lungs are otherwise clear. No pneumothorax. Job: [id number] MTDD
== END ==
LOC: LB.CLINIC 11:46
PROVIDERS: ATTEND Nurse Practitioner Family
DX: I25.10 Atherosclerotic heart disease of native coronary artery without angina pectoris (principal); J44.9 Chronic obstructive pulmonary disease, unspecified; R05 Cough; J92.9 Pleural plaque without asbestos; J98.4 Other disorders of lung
CPT/HCPCS: 36415; 71046; 80048; 85025

== ENCOUNTER 2019-04-29 16:06 | Emergency (ER) | payer MEDICARE, MEDICAID ==
[2019-04-29 16:27] VITALS: BP 122/82; PULSE 68
--- NOTE | 2019-04-29 23:55 | ER ---
HISTORY OF PRESENT ILLNESS: This is a 68-year-old male who comes in by ambulance with complaints of dizziness at home. There was some concern about chest pain, but the patient tells me that he has chronic chest discomfort, nothing new. He denies any chest pain at this time. The patient tells me that he did vomit on one occasion at home, and he felt dizzy a couple of times. The patient denies drinking alcohol today, and he denies feeling sick with fever, shortness of breath, wheezing, or upset stomach. OBJECTIVE: GENERAL APPEARANCE: The patient is awake and alert. He is very vague with answers. VITAL SIGNS: Reviewed. Blood pressure 129/87. He is afebrile, pulse 69, O2 sats 92% initially on room air. HEENT: On physical exam; oral mucous membranes are slightly dry. Tonsils are not enlarged or injected. Pharynx not inflamed. NECK: Supple. LUNGS: Clear with reduced air exchange throughout the lung humphrey. CARDIAC: Heart sounds distinct. S1, S2 present. Regular rate. ABDOMEN: Soft, nontender. Bowel sounds are present. SKIN: Warm and dry. We hooked the patient up to a heart monitor, and it shows normal sinus rhythm in the upper 60s. LAB AND X-RAY STUDIES: Chest x-ray is obtained and appears basically normal. LABORATORY DATA: Labs include a CBC which is normal. EtOH is 0.338. BMP shows sodium level just slightly elevated at 146. Kidney function is okay. DIAGNOSIS: Alcohol intoxication. TREATMENT PLAN: The patient's daughter is here. She will take him home. He is otherwise stable. They are to push fluids such as water with the patient this evening. The patient is still denying that he is drinking alcohol today. The patient's daughter states this is nothing new, and at this point, followup is p.r.n. CRS/MODL /[id number]
--- NOTE | 2019-04-30 09:47 | CR ---
DATE OF SERVICE: 04/19/19 CLINICAL DATA: dizziness AP CHEST: Comparison is made to a prior exam dated 01/22/19. The patient is status post median sternotomy. The heart size is normal. The aorta is calcified and ectatic. There are linear densities in the left lower lung consistent with linear atelectasis or fibrosis. There is pleural thickening in the left chest laterally and left costophrenic angle. There is a small calcified nodule in the right lung consistent with calcified granuloma from prior granulomatous disease. The lungs are otherwise clear. No evidence of acute intrathoracic disease. [id number] [facility]
== END 2019-04-29 16:58 | disposition home or self-care (01) ==
LOC: LB.ED 16:06
DX: F10.129 Alcohol abuse with intoxication, unspecified (principal); Y90.8 Blood alcohol level of 240 mg/100 ml or more
CPT/HCPCS: 36415; 71045; 80048; 80307; 85025; 99282; 99284; A0425; A0429

== ENCOUNTER 2019-12-12 05:31 | Emergency (ER) | payer MEDICARE, MEDICAID ==
[2019-12-12 07:04] VITALS: BP 111/76; PULSE 80
[2019-12-12] MEDS ORDERED: HYDROmorphone 2 MG/ML SDV IVPUSH ONE (07:05)
[2019-12-12] MEDS ORDERED: HYDROmorphone 2 MG/ML SDV ONE (07:16)
[2019-12-12] MEDS ORDERED: Ondansetron 4 MG/2 ML SDV IVPUSH ONE (07:23)
[2019-12-12] MEDS ORDERED: Ondansetron 4 MG/2 ML SDV ONE ×2 (07:33→08:45)
--- NOTE | 2019-12-12 09:00 | EDM.PDOC ---
ED HPI GENERAL MEDICAL PROBLEM - General Chief Complaint: Upper Extremity Injury/Pain Stated Complaint: Left Hand Numb Time Seen by Provider: 12/12/19 07:30 Source of Information: Reports: Patient, Family History Limitations: Reports: No Limitations - History of Present Illness INITIAL COMMENTS - FREE TEXT/NARRATIVE: Patient is a 69 y/o male who presents for left shoulder injury that occurred last night. He states he ran into a heavy door at his house that has an automatic closing mechanism. He was unable to move his arm after this and went to bed. His sister states that he drinks and probably drank last night to ease the pain. Patient called his sister this morning around 5 am to come take him to the hospital, because his left arm are hurting. He complains of pain, immobility of left upper extremity, and discoloration of his hand. Left Arm Pain Score (Numeric/FACES): 9 - Related Data Allergies Allergy/AdvReac Type Severity Reaction Status Date / Time No Known Allergies Allergy Verified 04/29/19 16:12 Home Meds: Home Meds lisinopriL [Prinivil] 2.5 mg PO DAILY 08/17/16 [History] Aspirin 325 mg PO QPM 02/07/17 [History] Omeprazole 20 mg PO DAILY 06/06/17 [History] Metoprolol Succinate [Toprol XL] 25 mg PO DAILY 04/29/19 [History] Ranitidine HCl [Ranitidine] 150 mg PO BID 04/29/19 [History] Past Medical History HEENT History: Reports: Hard of Hearing, Impaired Vision, Other (See Below) Other HEENT History: use to have dentures Cardiovascular History: Reports: CAD, Heart Failure, High Cholesterol, Hypertension, Other (See Below) Other Cardiovascular History: mitral valve disease Respiratory History: Reports: COPD Gastrointestinal History: Reports: GERD Musculoskeletal History: Reports: Back Pain, Chronic Neurological History: Reports: Head Trauma Psychiatric History: Reports: Anxiety - Infectious Disease History Infectious Disease History: Reports: Chicken Pox - Past Surgical History Cardiovascular Surgical History: Reports: Coronary Artery Bypass Respiratory Surgical History: Reports: None Social & Family History - Family History Family Medical History: Noncontributory - Tobacco Use Smoking Status *Q: Current Every Day Smoker Years of Tobacco use: 50 Packs/Tins Daily: 0.5 - Caffeine Use Caffeine Use: Reports: Coffee Other Caffeine Use: Chocolate, occasional coffee - Alcohol Use Days Per Week of Alcohol Use: 4 Number of Drinks Per Day: 4 Total Drinks Per Week: 16 - Recreational Drug Use Recreational Drug Use: No Review of Systems - Review of Systems Review Of Systems: See Below Constitutional: Reports: No Symptoms Respiratory: Reports: No Symptoms Cardiovascular: Reports: No Symptoms Musculoskeletal: Reports: Shoulder Pain, Arm Pain Skin: Reports: Cyanosis, Change in Color Neurological: Reports: Numbness ED EXAM, GENERAL - Physical Exam Exam: See Below Exam Limited By: No Limitations General Appearance: Alert, No Apparent Distress Head: Atraumatic, Normocephalic Respiratory/Chest: No Respiratory Distress, Lungs Clear, Normal Breath Sounds, N o Accessory Muscle Use, Chest Non-Tender Cardiovascular: Normal Peripheral Pulses, Regular Rate, Rhythm, No Edema, No Murmur Extremities: Slow Capillary Refill, Other (Cap refill to LUE is 5 seconds; deformity seen in left shoulder; cyanosis from the left elbow to the left hand with coldness; cannot palpate left radial pulse) Skin Exam: Cool, Cyanosis Course - Vital Signs Text/Narrative:: Called [facility] and there is no vascular surgeon educational therapy teacher this weekend. Called [place] and neurovascular surgeon is not able to consult on upper extremities. XRAY with comminuted and displaced proximal left humeral fracture. Unable to palpate left radial pulse or find with doppler. Patient given dilaudid and zofran for pain and nausea. Discussed with [facility]herer and Dr. Bourgeois (vascular surgeon) will see him in the ED. accepting ED physician is Dr. Diego. Patient air flighted there. Last Recorded V/S: Last Vital Signs Temp 36.9 C 12/12/19 06:58 Pulse 80 12/12/19 06:58 Resp 18 12/12/19 06:58 BP 111/76 12/12/19 06:58 Pulse Ox 98 12/12/19 06:58 - Orders/Labs/Meds Orders: Active Orders 24 hr Category Date Time Status Shoulder Comp Lt [CR] Stat Exams 12/12/19 06:30 Taken Meds: Medications Discontinued Medications Generic Name Dose Route Start Last Admin Trade Name Freq PRN Reason Stop Dose Admin Hydromorphone HCl Confirm 12/12/19 07:16 Dilaudid Administered 12/12/19 07:17 Dose 2 mg .ROUTE .STK-MED ONE Hydromorphone HCl 1 mg 12/12/19 07:05 12/12/19 07:27 Dilaudid IVPUSH 12/12/19 07:06 1 mg ONETIME ONE Administration Ondansetron HCl 4 mg 12/12/19 07:23 12/12/19 07:27 Zofran IVPUSH 12/12/19 07:24 4 mg ONETIME ONE Administration Ondansetron HCl Confirm 12/12/19 07:33 Zofran Administered 12/12/19 07:34 Dose 4 mg .ROUTE .STK-MED ONE Ondansetron HCl Confirm 12/12/19 08:45 Zofran Administered 12/12/19 08:46 Dose 4 mg .ROUTE .STK-MED ONE Departure - Departure Time of Disposition: 08:45 Disposition: DC/Tfer to [facility] Condition: Fair Clinical Impression: Humerus head fracture Qualifiers: Encounter type: initial encounter Fracture type: closed Laterality: left Qualified Code(s): S42.292A - Other displaced fracture of upper end of left humerus, initial encounter for closed fracture - Discharge Information *PRESCRIPTION DRUG MONITORING PROGRAM REVIEWED*: Not Applicable *COPY OF PRESCRIPTION DRUG MONITORING REPORT IN PATIENT SUNNI: Not Applicable Referrals: PCP,None [Primary Care Provider] - Forms: ED Department Discharge, ED Return to Work/School Form Sepsis Event Note (ED) - Evaluation Sepsis Screening Result: No Definite Risk - Focused Exam Vital Signs: Vital Signs Temp Pulse Resp BP Pulse Ox 12/12/19 06:58 36.9 C 80 18 111/76 98 - My Orders Last 24 Hours: My Active Orders 12/12/19 06:30 Shoulder Comp Lt [CR] Stat - Assessment/Plan Last 24 Hours: My Active Orders 12/12/19 06:30 Shoulder Comp Lt [CR] Stat
--- NOTE | 2019-12-12 14:46 | CR ---
CLINICAL DATA: Left shoulder injury. LEFT SHOULDER, 12 DECEMBER 2019: No priors. There is a comminuted fracture through the head and neck of the proximal humerus. The head of the humerus is rotated with respect to the shaft of the humerus. The patient is status post acromioplasty and distal clavicle resection. There is elevation of the distal clavicle with respect to the acromion process, age- indeterminate. No other significant findings. Job: [id number] [facility]
== END 2019-12-12 08:45 ==
LOC: LB.ED 05:31
DX: S42.202A Unspecified fracture of upper end of left humerus, initial encounter for closed fracture (principal); I11.0 Hypertensive heart disease with heart failure; I50.9 Heart failure, unspecified; I25.10 Atherosclerotic heart disease of native coronary artery without angina pectoris; J44.9 Chronic obstructive pulmonary disease, unspecified; K21.9 Gastro-esophageal reflux disease without esophagitis; F17.210 Nicotine dependence, cigarettes, uncomplicated; Z79.82 Long term (current) use of aspirin; Z79.899 Other long term (current) drug therapy; W22.8XXA Striking against or struck by other objects, initial encounter; Y93.02 Activity, running
CPT/HCPCS: 73030-LT; 96374; 96375; 99284-25; J1170; J2405

== ENCOUNTER 2020-08-31 03:44 | Emergency (ER) | payer MEDICARE, MEDICAID ==
[2020-08-31 04:11] VITALS: BP 108/71; PULSE 57
[2020-08-31] MEDS ORDERED: methylPREDNISolone Sodium Succinate 125 MG/2 ML SDV IM ONE ×2 (04:50→04:53)
--- NOTE | 2020-08-31 06:03 | ER ---
HISTORY OF PRESENT ILLNESS: A 70-year-old male here with complaints of pain on the right side of his throat. He states it is hard to swallow. This has been ongoing for a few days. He has been sneezing and sniffling and has had allergy problems that he takes Claritin for, but the pain on the right side of his throat seemed like it got worse during the night, it woke him up, and it hurt to swallow, and he started coughing as well. The patient does have history of COPD, that he has a nebulizer at home for, but feels that it is something different. He has not been running a fever and denies any respiratory distress or GI symptoms. OBJECTIVE: GENERAL APPEARANCE: The patient is awake and alert. No obvious distress. VITAL SIGNS: Reviewed. He is afebrile, pulse 57, blood pressure 108/71, O2 sats 96% on room air. HEENT: Oral mucous membranes moist. Pharynx is mildly reddened on both sides. There is minimal posterior drainage. NECK: Supple. There is one spot that is tender with palpation on the right side and just superior to the level of the larynx. There is mild guarding with palpation in this area. LUNG EXAM: Reveals minimal scattered wheezes without rales or rhonchi. SKIN: Warm and dry. The patient is able to swallow water, which is mild discomfort at this time. LABORATORY DATA AND X-RAY: Strep ID is negative. CBC shows a normal white count. Eosinophils are high and a basic metabolic panel is unremarkable. DIAGNOSES: 1. Pharyngitis. 2. Seasonal allergies. TREATMENT PLAN: Solu-Medrol 125 mg will be given IM. The patient is to continue with his Claritin. He can take Benadryl in the evening for a few days as well, and lastly, he should take Tylenol or ibuprofen on a p.r.n. basis for the pain and follow up with his primary care provider over the next couple of days if his symptoms are not definitely improving. Followup in the ER of course if his condition should get worse. CRS/MODL /[id number]
== END 2020-08-31 05:00 | disposition home or self-care (01) ==
LOC: LB.ED 03:44
DX: J02.9 Acute pharyngitis, unspecified (principal); J30.2 Other seasonal allergic rhinitis; J44.9 Chronic obstructive pulmonary disease, unspecified
CPT/HCPCS: 36415; 80048; 85025; 87430; 96372; 99283; J2930

== ENCOUNTER 2021-08-29 07:48 | Emergency (ER) | payer MEDICARE, MEDICAID ==
[2021-08-29] MEDS: Albuterol/Ipratropium 3.0-0.5 MG/3 ML Neb Soln NEB PRN ×2 (08:30→13:10)
[2021-08-29] MEDS ORDERED: GI Cocktail Oral Solution 30 ML PO ONE (08:58)
[2021-08-29 11:39] LABS: ESTIMATED GFR 62 mL/min (>60)
[2021-08-29 13:12] VITALS: BP 123/66; PULSE 64
[2021-08-29] MEDS ORDERED: Albuterol/Ipratropium 3.0-0.5 MG/3 ML Neb Soln ONE (13:14)
== END 2021-08-29 13:30 | disposition home or self-care (01) ==
LOC: LB.ED 07:48
DX: J43.1 Panlobular emphysema (principal); J01.91 Acute recurrent sinusitis, unspecified; K22.2 Esophageal obstruction; I25.10 Atherosclerotic heart disease of native coronary artery without angina pectoris; E78.00 Pure hypercholesterolemia, unspecified; I11.0 Hypertensive heart disease with heart failure; I50.9 Heart failure, unspecified; J44.9 Chronic obstructive pulmonary disease, unspecified; Z95.1 Presence of aortocoronary bypass graft; Z20.822 Contact with and (suspected) exposure to COVID-19
CPT/HCPCS: 36415; 71046; 80048; 85025; 99282; 99284-25; A0425; A0429; J7620; U0002